=== PATIENT | male | born 1970 | race African-American/Black ===

== ENCOUNTER 2017-03-22 22:27 | Emergency (ER) | payer OTHER ==
[~2017-03-22] VITALS: Ht 182.9 cm; Wt 105.0 kg
[2017-03-22 22:31] VITALS: Ht 182.9 cm; Wt 105.0 kg
[2017-03-22] MEDS ORDERED: HYDROCODONE/APAP (5/325) TAB PO ONE (23:30)
[2017-03-23 00:51] LABS: ADD UMIC NO; UR ASCORBIC ACID NEGATIVE (NEGATIVE); UR BILIRUBIN (Dip) NEGATIVE (NEGATIVE); UR BLOOD (Dip) NEGATIVE (NEGATIVE); UR CLARITY CLEAR (CLEAR); UR COLOR STRAW (YELLOW); UR GLUCOSE (Dip) NEGATIVE (NEGATIVE); UR KETONES (Dip) NEGATIVE (NEGATIVE); UR LEUKOCYTE ESTERASE (Dip) NEGATIVE Leu/ul (NEGATIVE); UR NITRITE (Dip) NEGATIVE (NEGATIVE); UR SPECIFIC GRAVITY (Dip) 1.008 (1.003-1.030); UR TOTAL PROTEIN (Dip) NEGATIVE (NEGATIVE); UR UROBILINOGEN (Dip) NEGATIVE (NEGATIVE)
[2017-03-23] MEDS ORDERED: IBUP100T46 PO (01:01)
[2017-03-23] MEDS ORDERED: CYAN500T46 PO (01:01)
[2017-03-23] MEDS ORDERED: ASCO500S2 PO (01:01)
[2017-03-23] MEDS ORDERED: NAPR-260 PO (01:02)
[2017-03-23 01:10] VITALS: BP 150/80; PULSE 48; RESP 20; TEMP 97.8
--- NOTE | 2017-03-23 01:31 | ERD ---
ER Documentation Chief Complaint Date/Time DATE: 03/23/17 TIME: 01:02 Chief Complaint upper back pain x 2 days, denies injury HPI 46-year-old male with no significant past medical history presenting with right- sided back pain that started 2 days ago. Pain was nontraumatic, no heavy lifting or any significant activities before the pain started. The pain is aching, sharp, intermittent, in his right lower back radiating up the right side of his back and with some burning pain down his right leg. He denies any change in urinary or bowel habits. He denies any numbness, tingling, or weakness in the lower extremities. There is no numbness in his buttocks. No fever, chills, weight loss, or history of cancer. He denies any associated abdominal pain, nausea, vomiting, hematuria, or dysuria. ROS All systems reviewed and are negative except as per history of present illness. Medications Home Meds Active Scripts Naproxen* (Naprosyn*) 500 Mg Tablet, 500 MG PO BID Y for PAIN AND/OR INFLAMMATION, #30 TAB Prov:CAMRYN DOBBS MD 03/23/17 Reported Medications Cyanocobalamin* (Vitamin B12*) 500 Mcg Tab, 1000 MCG PO DAILY, TAB 03/23/17 Ascorbic Acid* (Ascorbic Acid*) 500 Mg/5 Ml Syrup, 500 MG PO DAILY, #150 ML 03/23/17 Ibuprofen* (Ibuprofen*) 100 Mg Tab.chew, 200 MG PO Q6 Y for PAIN, TAB.CHEW 03/23/17 Allergies Allergies: Coded Allergies: No Known Allergy (Unverified , 03/22/17) PMhx/Soc History of Surgery: Yes (APPY) Anesthesia Reaction: No Hx Neurological Disorder: No Hx Respiratory Disorders: No Hx Cardiac Disorders: No Hx Psychiatric Problems: No Hx Miscellaneous Medical Probl: No Hx Alcohol Use: Yes (SOCIALLY) Hx Substance Use: No Hx Tobacco Use: No Smoking Status: Never smoker FmHx Family History: No coronary disease, No diabetes Physical Exam Vitals Vital Signs Date Time Temp Pulse Resp B/P Pulse Ox O2 Delivery O2 Flow Rate FiO2 03/22/17 23:13 97.8 45 20 154/96 100 03/22/17 23:01 97.8 20 165/84 100 03/22/17 22:31 97.8 67 20 165/84 100 Physical Exam Const: Well-appearing, no apparent distress Head: Atraumatic Eyes: Normal Conjunctiva ENT: Normal External Ears, Nose and Mouth. Neck: Full range of motion..~ No meningismus. No midline tenderness Resp: Clear to auscultation bilaterally Cardio: Regular rate and rhythm, no murmurs. 2+ distal pulses Abd: Soft, non tender, non distended. Normal bowel sounds Skin: No petechiae or rashes Back: Full range of motion. No midline or flank tenderness. Minimal right paraspinal muscle tenderness Ext: No cyanosis, or edema Neur: Awake and alert and oriented 3, cranial nerves intact, strength and sensations intact in all 4 extremities, normal gait Psych: Normal Mood and Affect Results 24 hrs Laboratory Tests Test 03/23/17 00:15 Urine Color STRAW Urine Clarity CLEAR Urine pH 6.0 Urine Specific [place] 1.008 Urine Ketones NEGATIVEmg/dL Urine Nitrite NEGATIVEmg/dL Urine Bilirubin NEGATIVEmg/dL Urine Urobilinogen NEGATIVEmg/dL Urine Leukocyte Esterase NEGATIVELeu/ul Urine Hemoglobin NEGATIVEmg/dL Urine Glucose NEGATIVEmg/dL Urine Total Protein NEGATIVEmg/dl Current Medications Medications (Trade) Dose Ordered Sig/Sid Route PRN Reason Start Time Stop Time Status Last Admin Dose Admin Acetaminophen/ Hydrocodone Bitart ([place] (5/325)) 1 tab ONCE ONCE PO 03/22/17 23:30 03/22/17 23:31 DC 03/22/17 23:27 Procedures/MDM The patient is neurovascularly intact on exam with unremarkable vitals. I have a low suspicion for spinal tumor as the patient has no history of cancer, night sweats, or weight loss. I have a low suspicion for bone or disc infection, cauda equina, cord compression, acute spinal fracture, or abscess. I believe the patient is stable for continued outpatient follow up with their PCP. Return precautions were discussed in detail. I recommended rest and analgesics. Departure Diagnosis: Primary Impression: Acute right-sided back pain Back pain location: back pain in unspecified location Qualified Code: M54.9 - Acute right-sided back pain, unspecified back location Condition: Stable Patient Instructions: Back Pain (Acute Or Chronic) Referrals: [facility] YOU HAVE RECEIVED A MEDICAL SCREENING EXAM AND THE RESULTS INDICATE THAT YOU DO NOT HAVE A CONDITION THAT REQUIRES URGENT TREATMENT IN THE EMERGENCY DEPARTMENT. FURTHER EVALUATION AND TREATMENT OF YOUR CONDITION CAN WAIT UNTIL YOU ARE SEEN IN YOUR DOCTORS OFFICE WITHIN THE NEXT 1-2 DAYS. IT IS YOUR RESPONSIBILITY TO MAKE AN APPOINTMENT FOR FOLOW-UP CARE. IF YOU HAVE A PRIMARY DOCTOR --you should call your primary doctor and schedule an appointment IF YOU DO NOT HAVE A PRIMARY DOCTOR YOU CAN CALL OUR PHYSICIAN REFERRAL HOTLINE AT IF YOU CAN NOT AFFORD TO SEE A PHYSICIAN YOU CAN CHOSE FROM THE FOLLOWING [facility] [address] [facility] [address] [facility] [address] [facility] [address] [facility] [address] [facility]. [facility]. [address] Additional Instructions: Follow up with your primary care physician in 2 days. Return to the ER for any worsening symptoms. CAMRYN DOBBS MD Mar 23, 2017 01:30
== END 2017-03-23 01:25 | disposition home or self-care (01) ==
LOC: E/R 22:27
DX: M54.6 Pain in thoracic spine (principal)
CPT/HCPCS: 81003; Z7502; Z7610; 99283